=== PATIENT | female | born 1970 | race Asian ===

== ENCOUNTER 2024-01-24 03:44 | Inpatient (IN) | payer MEDICARE, SELFPAY ==
[2024-01-23 21:39] VITALS: BP 106/72
[2024-01-23 21:55] LABS: % Basophils 0.1 % (0-2); % Immature Granulocytes 0.4 % (0-0.5); % Lymphocytes 7.9 % (20.5-51.1); % Monocytes 5.3 % (1.7-9.3); % Neutrophils 86.3 % (42.2-75.2); Absolute Lymphocytes 0.9 10^3/uL (1.2-3.4); Absolute Monocytes 0.6 10^3/uL (0.1-0.6); Absolute Neutrophils 9.6 10^3/uL (1.4-6.5); Hematocrit 33.2 % (37.0-47.0); Hemoglobin 11.6 g/dL (12.0-16.0); Mean Corp Hgb Conc. 34.9 g/dL (33.0-37.0); Mean Corpuscular Hgb 31.4 pg (27.0-31.0); Mean Platelet Volume 8.9 fL (7.4-10.4); Nucleated Red Blood Cells % 0 %; Platelet Count 282 10^3/uL (130-400); Red Blood Cell Count 3.69 10^6/uL (4.20-5.40); Red Cell Dist. Width 11.8 % (11.5-14.5); White Blood Cell Count 11.1 10^3/uL (4.8-10.8)
[2024-01-23 22:15] LABS: ALT (SGPT) 18 U/L (0-35); AST (SGOT) 24 U/L (14-36); Albumin 4.3 g/dl (3.5-5.0); Alkaline Phosphatase 77 U/L (38-126); Blood Urea Nitrogen 14 mg/dl (7-17); Carbon Dioxide 30 mmol/L (22-30); Chloride 99 mmol/L (98-107); Glucose 119 mg/dl (70-99); Lipase 174 U/L (23-300); Potassium 3.9 mmol/L (3.5-5.1); Sodium 133 mmol/L (135-145); Total Bilirubin 0.9 mg/dl (0.2-1.3); Total Protein 7.1 g/dl (6.3-8.2); eGFR > 60.00
--- NOTE | 2024-01-23 23:00 | ED.GENMED ---
History of Present Illness
General
Chief Complaint: Abdominal Pain
Source: patient and family (Daughter Interpreted some)
Exam Limitations: none
Time Seen by Provider: 01/23/24 22:41
Travel History
Have you had any contact with someone who has COVID-19?: No
Do you have any symptoms of coronavirus? Fever > 100 degrees, chills, cough, shortness of breath, sore throat, loss of taste or smell, muscle aches, or headache?: No
History of Present Illness
History of Present Illness:
This is a 53 year old female that comes in with c/o right lower abd pain. States that she started 2 weeks ago with nausea and vomiting. States that at first the pain was all over the abd and then in the past week has moved to the right lower abd.
States that she has tried TUMS and Nexium without any relief. States that she feels she had a fever with chills, occasionally felt SOB, and a headache. Denies any chest pain, vomiting, diarrhea, dizzines, urinary burning.
Past History
Past History
ED Past Medical History: Other (Duodenal ulcer, Glaucoma)
ED Past Surgical History: Other (Bilateral eye surgery)
Social History
Tobacco: Non-smoker
Alcohol: None
Drug: None
Personal:
Living: with family
Review of Systems
Review of Systems
All Other Systems: ROS reviewed and negative except as documented in HPI and ROS
Constitutional: Reports fever and chills
Respiratory: Reports trouble breathing (occasional); Denies cough
Cardiac: Reports no symptoms; Denies chest pain
ABD/GI: Reports abdominal pain and nausea; Denies vomiting or diarrhea
: Reports no symptoms; Denies dysuria, frequency or urgency
Musculoskeletal: Reports no symptoms
Skin: Reports no symptoms
Neurological: Reports headache; Denies dizzy
Psychiatric: Reports no symptoms
Phy Exam
General Physical Exam
General Presentation: no apparent distress
General age: appears stated age
General Skin: warm and dry
General Habitus: normal
General Mental: alert
General Hydration: appears well hydrated
ENT Exam
ENT Exam: TM's normal, pharynx normal and neck supple
Eye Exam
Eye Exam: EOMI
Cardiovascular Exam
Cardiovascular Exam: regular rate/rhythm, no edema, no murmur and normal peripheral pulses
Pulmonary Exam
Pulmonary Exam: lungs clear, no respiratory distress, no rales, chest non tender, no crackles, no rhonchi, no wheezing and no cough
Gastrointestinal Exam
Gastrointestinal Exam: normal bowel sounds, soft, no organomegaly, no pulsatile mass, non distended and tender (Right lower abd tenderness with palpation)
Musculoskeletal Exam
Musculoskeletal Exam: full ROM and no edema
Skin Exam
Skin Exam: normal color, warm/dry, no rash and no petechia
Psychiatric Exam
Psychiatric Exam: normal mood/affect
Course
Orders/Labs/Results
Orders:
Orders
01/23/24 21:47
CMP [Comprehensive Metabolic Panel] Urgent
Complete Blood Count/With Diff Urgent
Lipase Urgent
01/23/24 23:00
0.9% Sodium Chloride 1000 ml [Nss] 1,000 ml IV BOLUS
Iohexol [Omnipaque] See Protocol PO NOW STA
Ketorolac [Toradol] 30 mg IV NOW STA
01/23/24 23:02
Ondansetron Injectable [Zofran] 4 mg .ROUTE .STK-MED ONE
Ondansetron Injectable [Zofran] 4 mg IV NOW STA
01/23/24 23:12
Iohexol [Omnipaque] 50 ml .ROUTE .STK-MED ONE
01/24/24 01:19
Urinalysis Reflex To Culture Urgent
Date Specimen was Collected: 01/24/24
Time Specimen was Collected: 01:15
Urine Microscopic Reflex Cult Urgent
01/24/24 01:30
CT Abd/pel W Iv And Oral Contr Urgent
Reason For Exam: Right lower abd pain
01/24/24 02:00
Lactic Acid Urgent
01/24/24 02:37
Admit/Transfer Patient As Directed
Co-Sign Provider:
Level of Care: Inpatient admission
Assign to:: Medical/Surgical
Physician / Group: Lexi Lares - hospitalists
Diagnosis: centrally necrotic colonic mass
Reason for Hospitalization: centrally necrotic colonic mass - GI eval, colonoscopy
Expected length of stay greater than two midnights?: Yes
ELOS- Estimated Length of Stay in days: 2
I certify the patient meets the requirements for IP care: Yes
01/24/24 02:38
Code Status As Directed
Resuscitation Status: Full Code
Abnormal Lab Results
01/23/24 01/24/24
21:47 01:19
WBC 11.1 H 10^3/uL
(4.8-10.8)
RBC 3.69 L 10^6/uL
(4.20-5.40)
Hgb 11.6 L g/dL
(12.0-16.0)
Hct 33.2 L %
(37.0-47.0)
MCH 31.4 H pg
(27.0-31.0)
Absolute Neuts (auto) 9.6 H 10^3/uL
(1.4-6.5)
Absolute Lymphs (auto) 0.9 L 10^3/uL
(1.2-3.4)
Neutrophils % 86.3 H %
(42.2-75.2)
Lymphocytes % 7.9 L %
(20.5-51.1)
Sodium 133 L mmol/L
(135-145)
Glucose 119 H mg/dl
(70-99)
Ur Occult Blood Reflex 1+ A
(Negative)
Urine RBC 7-10 A /HPF
(0-2)
Urine Bacteria (Reflex) Few A
(Negative)
01/23/24 21:47
01/23/24 21:47
WBC slightly elevated. H/H slightly low. Sodium slightly low. Glucose nonfasting. Lipase normal at 174
Vital Signs
Initial and Last Documented VS:
Initial Vital Signs
Temp Pulse Resp BP Pulse Ox
99.1 F 116 24 106/72 98
01/23/24 21:39 01/23/24 21:39 01/23/24 21:39 01/23/24 21:39 01/23/24 21:39
Last Documented Vital Signs
Temp Pulse Resp BP Pulse Ox
98.4 F 84 20 92/56 98
01/24/24 01:38 01/24/24 01:38 01/24/24 01:38 01/24/24 01:38 01/24/24 01:38
MDM/Problems Addressed
Differential Diagnosis Includes:
Appendicitis, Ovarian cyst
MDM/Problems Addressed:
This is a 53 year old female that comes in with c/o abd pain. States that 2 weeks ago she had nausea and vomiting. Then over the past week she had severe abd pain and this pain moved to the RLQ.
Will get labs, CT scan, IV fluids and medicate for pain.
Back into see patient and daughter. Explained that her CT shows that there is a mass at the cecum and ascending colon. This is a concern for malignancy. Explained that at this time there is no sign of obstruction but this is a concern. With
patient pain Will admit patient for further evaluation. Hospitalist notified.
Chronic conditions affecting care:
NA
Acute Exacerbation and/or Progression of Chronic Illness:
NA
*Radiology
Radiology exam reviewed: radiology read reviewed (CT night hawk- Approximately 4.1 X 3.2 X 5.1cm peripherally enhancing, centrally necrotic mass in the right lower quadrant abutting the thickened cecum and ascending colon, concerning for malignancy.
This may be arising form the colon or from the right adnexa. There is a moderate surrounding fat ) and other (CT cont- fat strandiing and trace free fluid. NO obstruction. NO free air. NO additional findings concerning for metastases. No
lymphadenopathy. )
*Pulse Oximetry
Patient hypoxic: no
*EKG
Interpreted by ED Provider?: NA
Rate: EKG- N/A
*Soda Column Operator Interpretation
Rate: Soda Column Operator- N/A
*Critical Care Note
Total Time (30-74mins, 75-104mins- exclusive of procedures): Not Applicable
ED Attending Note
-
Portions of this chart may have been created with voice recognition software.� Occasional wrong word or��sound alike� substitutions may have occurred due to the inherent limitations of voice recognition software.
Discharge Plan
Departure
Patient Disposition: Admit
Date of Disposition: 01/24/24
Time of Disposition: 02:09
Admit to: Med/Surg
Presentation/result/management discussed w/ accepting MD/DO: Hospitalist
Patient with high blood pressure during this ER visit?: No
Condition: Good
Covid-19: Not Applicable
Discharge Problem:
Abdominal pain
Prescriptions:
No Action
esomeprazole magnesium [Nexium] 40 MG capsule,delayed release(DR/EC)
40 mg PO DAILY
Referrals:
Julia Bob MD [Family Provider] -
Interventions
Interventions:
*Risk Screen - Suicide Last Done: 01/23/24 21:39
*Neglect/Abuse Screening Last Done: 01/23/24 21:39
ED- Fall Risk Assessment Last Done: 01/23/24 23:16
NV-Kjzsle-Ussaqclcjg Assessment Last Done: 01/23/24 23:16
[2024-01-23] MEDS: TORADOL 30 MG IV (23:10)
[2024-01-23] MEDS: OMNIPAQUE 50 ML PO (23:10)
[2024-01-23] MEDS: ZOFRAN 4 MG IV (23:10)
[2024-01-23] MEDS: NSS 1000 IV (23:10)
[2024-01-24 01:31] LABS: Urine Albumin Negative (Neg - Trace); Urine Bilirubin Negative (Negative); Urine Character Clear (Clear); Urine Color Yellow; Urine Glucose Negative (Negative); Urine Ketone Negative (Negative); Urine Leukocyte Negative (Negative); Urine Nitrite Negative (Negative); Urine Occult Blood 1+ (Negative); Urine Specific Gravity 1.005 (<1.030); Urine Urobilinogen Negative (Neg - 1+)
[2024-01-24 01:38] VITALS: BP 92/56
[2024-01-24 02:10] LABS: Urine Bacteria Few (Negative); Urine Squamous Cell 0-2 /LPF (Few)
--- NOTE | 2024-01-24 02:24 | HPS.HSE ---
Family Physician
-
Family Physician: Julia Bob
Chief Complaint
-
abdominal pain
History of Present Illness
53 y/o F, hx of PUD, prior C-scope 2 years ago with small polyps presents to ER c/o abd pain. She reports that her symptoms first began 2 weeks ago with nausea/vomiting. Her pain was initially generalized but now is localized to RLQ. She reports
some chills and headaches. denies UTI symptoms. She tried PPI, Tums and rest, without relief. Due to symptoms, appetite has been limited for past 2 weeks and she has lost 6 pounds.
No prior GI/ surgeries.
initial CT in ER concerning for large R colon mass.
Medical History
Past Medical History
Past Medical History: Reports Other (hx of PUD, prior C-scope 2 years ago with small polyps)
Past Surgical History: Reports Other (Bilateral eye surgery)
Social History
Tobacco: Non-smoker
Alcohol: None
Drug: None
Personal:
Living: With Family
Family History
Family History: Not pertinent
Allergies / Home Medications
Allergies reflects when Allergies were last updated in [employer].
Home Medications with original date entered in [employer]
Allergy/Medication List:
Allergies
Allergy/AdvReac Type Severity Reaction Status Date / Time
No Known Allergies Allergy Verified 01/23/24 21:43
Home Medications
esomeprazole magnesium 40 mg capsule,delayed release (Nexium) 40 mg PO DAILY 10/30/14
Review of Systems
-
A 12 point ROS was completed and negative except as noted: Yes
Physical Exam
Vital Signs
Vital Signs
Temp Pulse Resp BP Pulse Ox
98.4 F 84 20 92/56 98
01/24/24 01:38 01/24/24 01:38 01/24/24 01:38 01/24/24 01:38 01/24/24 01:38
Physical Exam
General: No Apparent Distress
HEENT: NormoCephalic
Respiratory: Clear; No Wheezes or Rales
Cardiac: S1/S2 and Regular Rhythm
GI: Soft and Tender (RLQ to deep palpation)
Neuro: AO x 3
Hematologic/Lymphatic: No Lymphadenopathy
Psych: Calm
Laboratory Results
-
01/23/24 21:47
01/23/24 21:47
Laboratory Results
Total Bilirubin 0.9 mg/dl (0.2-1.3) 01/23/24 21:47
AST 24 U/L (14-36) 01/23/24 21:47
ALT 18 U/L (0-35) 01/23/24 21:47
Alkaline Phosphatase 77 U/L (38-126) 01/23/24 21:47
Lipase 174 U/L (23-300) 01/23/24 21:47
Data Reviewed
-
CT Scan: Discussed with Physician and Discussed with Patient
Lab Data: Discussed with Physician and Discussed with Patient
Impression/Plan
-
Assessment:
Abdominal pain/n/v/weight loss
- CT prelim per ER: Approximately 4.1 X 3.2 X 5.1cm peripherally enhancing, centrally necrotic mass in the right lower quadrant abutting the thickened cecum and ascending colon, concerning for malignancy. This may be arising form the colon or from
the right adnexa.
- formal read pending.
- clears; likely will need colonoscopy. consult GI. May consider CRS consult if surgical candidate.
- pain control, anti-emetics
Leukocytosis, possibly reactive in setting of mass
- UA negative
- monitor for fevers; initiate additional workup if febrile
PUD
- hx of stomach ulcer - continue PPI daily
DVT ppx: Lovenox
Code: Full
[2024-01-24 03:14] LABS: Lactic Acid 0.5 mmol/L (0.7-2.0)
[2024-01-24 06:59] LABS: Blood Urea Nitrogen 11 mg/dl (7-17); Calcium 8.5 mg/dl (8.4-10.2); Carbon Dioxide 26 mmol/L (22-30); Chloride 103 mmol/L (98-107); Glucose 88 mg/dl (70-99); Potassium 4.2 mmol/L (3.5-5.1); Sodium 135 mmol/L (135-145); eGFR > 60.00
--- NOTE | 2024-01-24 06:59 | CON.GI ---
Addendum entered and electronically signed by Jasmin Wilkes MD 01/24/24 12:35:
I saw and examined the patient.
The DIRECTOR OF MARKETING COMMUNICATIONS's note was reviewed and I agree with the note.
Comment: This is a very pleasant 53-year-old Turkmen female who presented to the emergency room with symptoms of right lower quadrant abdominal pain with nausea and intermittent vomiting with 6 pound weight loss over the past 2 weeks. [address]
CT shows a mass in the right lower quadrant possible ovarian versus colon mass. Also liver lesion noted thought to be a vascular anomaly less likely metastatic lesion. She did have a colonoscopy about [address] Álvarez small polyp
removed. She says that she had a recent endoscopy in [facility] about a year ago and she says that she was told that her stomach is narrow and prior to that she did have an endoscopy in [address] Bob as below which showed duodenitis, gastric
antral ulcer, questionable pre pyloric healed ulcer vs gastric fistula versus congenital abnormality.
Assessment and plan large 5 cm centrally necrotic mass in the right lower quadrant unclear if it is ovarian versus colonic origin. CEA is normal, CA 125 (P). Discussed with Dr. Amarjit Gruber earlier will get an MRI pelvis and given also possible
liver lesion noted on CT questionable vascular anomaly would also get MRI abdomen to rule out metastatic lesion. Based on the finding if it is noted to be colonic will schedule her for colonoscopy tomorrow and if it is noted to be of pelvic/[facility]
origin she will follow-up with [facility] oncology. need to r/o neoplasm vs less likely infectious etiology ? TB
2. She does have a history of reflux and PUD and has been on Nexium daily, she denies prior history of H. pylori.
3. History of colon polyps as described above she is up-to-date with her colonoscopy last [address] Álvarez.
Original Note:
Consultation
-
Date/Time Consultation Requested: 01/24/24 704
Date/Time Consultation Performed: 01/24/2413
Requesting Provider: Lexi Lares MD
Performing Provider: Nicky Kriney, EVENING OR NIGHT NURSE SUPERVISORJasmin REDD MD
Reason for Consultation: abdominal pain
Medical History
Chief Complaint / HPI
Chief Complaint: abdominal pain
History of Present Illness:
Pt is a 53yo with hx PUD 2013 with EGD at that time with Dr. Álvarez at [facility] then repeat with Dr. Bob after noted nausea and vomiting. Second EGD with Duodenal erythema, superficial gastric ulcer, - prior ulcer vs fistula vs congenital abnormality.
She also report colonoscopy [address] Oscar with small polyp then repeat last year in [place] noted normal. She also report stable [facility] exam in [place] last year. She now returns with onset of abdominal pain with nausea and vomiting.
symptoms began in December with 7 lbs wt loss and difficulty eating with increased pain. CT on admission with concern for 5 cm necrotic mass right lower quadrant with concern for ovarian neoplasm vs colonic process note excluded. Also noted with 2
cm hyperenhancing lesion left hepatic lobe possible vascular anomaly. consider MRI.
Pt admits to GERD and some vomiting with symptoms. She denies dysphagia, diarrhea, constipation vaginal bleeding or rectal bleeding.
2013- EGD Guille Bob- Duodenal erythema, superficial gastric ulcer, - prior ulcer vs fistula vs congenital abnormality
Past Medical History
Past Medical History: Other (PUD, colon polyps, glaucoma)
Past Surgical History: Other (eye surgery)
Social History
Tobacco: Non-Smoker
Alcohol: None
Drug: None
Living: With Family
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
Family History
Family History: Other (no family hx colon cA or polyps)
Allergies / Home Medications
Allergy/AdvReac Type Severity Reaction Status Date / Time
No Known Allergies Allergy Verified 01/23/24 21:43
Medication Instructions Recorded
esomeprazole magnesium 40 mg 40 mg PO DAILY 10/30/14
capsule,delayed release (Nexium)
Review of Systems
-
History Source: Patient
Constitutional: Reports Weight Loss ( 7 lbs )
EENT: Reports No Symptoms
Respiratory: Reports No Symptoms
Cardiac: Reports No Symptoms
Abdomen/GI: Reports Abdominal Pain, Nausea and Vomiting
: Reports No Symptoms
Musculoskeletal: Reports No Symptoms
Skin: Reports No Symptoms
Neurological: Reports Weakness
Endocrine: Reports No Symptoms
Hematologic/Lymphatic: Reports No Symptoms
Vital Signs
Temp Pulse Resp BP Pulse Ox
98.4 F 84 20 92/56 98
01/24/24 01:38 01/24/24 01:38 01/24/24 01:38 01/24/24 01:38 01/24/24 01:38
Physical Exam
Exam
General: Well Developed, Well Nourished and No Apparent Distress
HEENT: Normocephalic and Anicteric
Respiratory: Clear
Cardiac: Regular Rhythm
GI: Soft, Non Distended and Tender (mild lower worse RLQ)
Musculoskeletal: No Clubbing and No Cyanosis
Skin: Warm and Dry
Neuro: Awake, Alert and AO x 3
Psych: Calm
Results
WBC 11.1 10^3/uL (4.8-10.8) H 01/23/24 21:47
Hgb 11.6 g/dL (12.0-16.0) L 01/23/24 21:47
Hct 33.2 % (37.0-47.0) L 01/23/24 21:47
MCV 90.0 fL (81.0-99.0) 01/23/24 21:47
Plt Count 282 10^3/uL (130-400) 01/23/24 21:47
Absolute Neuts (auto) 9.6 10^3/uL (1.4-6.5) H 01/23/24 21:47
Sodium 133 mmol/L (135-145) L 01/23/24 21:47
Potassium 3.9 mmol/L (3.5-5.1) 01/23/24 21:47
Chloride 99 mmol/L (98-107) 01/23/24:
Carbon Dioxide 30 mmol/L (22-30) 01/23/24:
BUN 14 mg/dl (7-17) 01/23/24:
Creatinine 0.8 mg/dL (0.6-1.0) 01/23/24:
Calcium 9.0 mg/dl (8.4-10.2) 01/23/24:
Total Bilirubin 0.9 mg/dl (0.2-1.3) 01/23/24:
AST 24 U/L (14-36) 01/23/24:
ALT 18 U/L (0-35) 01/23/24:
Alkaline Phosphatase 77 U/L (38-126) 01/23/24:
Lipase 174 U/L (23-300) 01/23/24:
Diagnostic Image Results:
01/24/24 CT Abd/pel W Iv And Oral Contr
There is an approximately 5 cm peripherally enhancing lobulated centrally necrotic mass in the right lower quadrant. This likely is from adnexal origin and suggest ovarian neoplasm however a colonic neoplasm cannot be excluded. Consider follow-up CT
as the oral contrast did not reach the right lower quadrant small bowel loops or colon, a follow-up CT could provide information for location of the mass.
There is no small bowel obstruction. No discrete mass or adenopathy otherwise.
There is a 2 cm hyperenhancing lesion in the left hepatic lobe which is not specific. This suggests a vascular anomaly, rather than a metastatic lesion. This becomes isodense with the liver on delayed imaging. Follow-up with contrast-enhanced MRI of
the liver could be performed to further evaluate if clinically indicated.
Prior GI Procedures:
EGD: 2013- EGD Guille Bob- Duodenal erythema, superficial gastric ulcer, - prior ulcer vs fistula vs congenital abnormality
Colonoscopy: [address] Álvarez small polyp then 1 year ago in [place] normal
Assessment / Plan
-
Pt is a 53yo with hx PUD 2013 with EGD at that time with Dr. Álvarez at [facility] then repeat with Dr. Bob after noted nausea and vomiting. Second EGD with Duodenal erythema, superficial gastric ulcer, - prior ulcer vs fistula vs congenital abnormality.
She also report colonoscopy [address] Oscar with small polyp then repeat last year in [place] noted normal. She also report stable [facility] exam in [place] last year. She now returns with onset of abdominal pain with nausea and vomiting.
symptoms began in December with 7 lbs wt loss and difficulty eating with increased pain. CT on admission with concern for 5 cm necrotic mass right lower quadrant with concern for ovarian neoplasm vs colonic process note excluded. Also noted with 2
cm hyperenhancing lesion left hepatic lobe possible vascular anomaly. consider MRI.
-abdominal pain with nausea/vomiting and wt loss
-CT with concern for 5 cm necrotic mass ovarian vs colonic process
-2 cm hyperenhancing hepatic lesion
-hx colon polyp
-hx gastric/duodenal ulcer 2013 with ? fistula vs congenital abnormality
-glaucoma
PLAN:
etiology of abdominal pain related to noted mass on CT vs other
plan for MRI pelvis to further characterize mass
t/c MRI abdomen to eval liver lesion
CEA and Ca 125 pending
clear diet
will follow
-
-
Thank you for consultation and allowing me to participate in the patient's care. Please call the commercial front load operator GI physician during the after hours with any questions or concerns.
[2024-01-24 07:02] LABS: Hematocrit 31.9 % (37.0-47.0); Mean Corp Hgb Conc. 34.5 g/dL (33.0-37.0); Mean Corpuscular Hgb 31.8 pg (27.0-31.0); Mean Corpuscular Volume 92.2 fL (81.0-99.0); Mean Platelet Volume 9.6 fL (7.4-10.4); Platelet Count 239 10^3/uL (130-400); Red Blood Cell Count 3.46 10^6/uL (4.20-5.40); Red Cell Dist. Width 11.8 % (11.5-14.5); White Blood Cell Count 10.4 10^3/uL (4.8-10.8)
[2024-01-24 08:27] VITALS: BP 102/73
--- NOTE | 2024-01-24 08:30 | W.PN.UPDATE ---
Addendum entered and electronically signed by Amarjit Gruber MD 01/24/24 17:28:
MRI abd/pelvis report
Complex right adnexal mass, as described. Multiple possible differentials. This could represent tubo-ovarian abscess, complications of ectopic , cystic/necrotic ovarian or gastrointestinal neoplasm, neoplastic or degenerated pedunculated
uterine or broad ligament fibroid, or periappendiceal abscess.
Findings discussed with patient and family. patient will require evaluation by onc-contact center team lead.
I have contacted Dr Russo and will be seeing patient in office. Contact number provided for patient to call and make a f/u appointment
Patient does not have insurance coverage and requesting assistance, will have to have case management contact family.
Patient will be discharged . Family in agreement with plan .
script for oxycodone/zofran sent to pharmacy
Original Note:
Update Note
Progress Note Update
Non billable note
Patient resting comfortably in bed
Having some RLQ pain , no nausea/vomiting. afebrile in night.
CT a/p images reviewed and interpreted personally. Mass in right pelvis and unable to be differentiated completely. suspected malignancy from adenxa vs colon (of note patient had c-scope in [place] 1 yr back and had polyp? )
CEA and CA 125 level sent
Case discussed with GI - ordering pelvic MRI to better delineate pelvic mass.
--- NOTE | 2024-01-24 11:03 | PTCARENOTE ---
pt aaox3. states 5/10 pain but does not want pain med. states it is her left and right lower abd. tender to touch. afghan pt second language daughter in room to assist. room air breath sounds clear.
[2024-01-24 11:41] LABS: CEA 1.33 ng/ml
[2024-01-24 11:59] VITALS: BMI 17.4
--- NOTE | 2024-01-24 13:33 | CM ---
Addendum entered by Tricia North RN 01/26/24 13:05:
CM updated patient that her insurance is active.
Original Note:
MEt dgtr Ching in room as patient out for MRI. Ching is home from [facility] on [facility].
Patient has medicare due to her glaucoma and visual deficits.
Prior to admit patient independent at home.
Dgtr reports she is helping her parents get their medicaid reinstated.
PCP is Dr. Julia Bob. IF home care is needed dgtr would like Danish speaking home care staff from [facility] which is affliliated with her PCP in [place].
Pharmacy: [facility],
Plan: home but may need home care.
[2024-01-24] MEDS: TYLENOL 650 MG PO (14:00)
--- NOTE | 2024-01-25 07:37 | W.DCSUMMARY ---
Discharge Summary
Discharge Data
Date of Admission: 01/24/24
Date of Discharge: 01/24/24
-
Pending Results: No
Hospital Course
Discharging Physician : Dr Amarjit Gruber
Disposition : To home
Primary care physician : Dr Julia Bob
Principal Discharge diagnosis :
Right pelvic mass presumed to be adnexal in nature
Chronic Discharge diagnosis :
Gastroesophageal reflux disease
History of colonic polyp
History of peptic ulcer disease
Hospital Course :
Patient is a 53-year-old female with above-mentioned past medical history came to ER with new onset of right lower quadrant abdominal pain. Symptoms began approximately 2 weeks back with some associated nausea and vomiting. No major change in
bowel habits. Patient has been losing weight with some nighttime diaphoresis as well. In ER patient had a CT abdomen pelvis which showed right pelvic mass. Patient denies of having any previous history of malignancy, no family history of
malignancy. Patient had screening colonoscopy in the past and had benign polyp removed. GI was involved in care for further help as there was question of this mass originating from colon. On further reviewing images it was unclear if the mass was
originating from adnexal masses a possible differential source. An MRI pelvis was done which showed mass likely to be coming from adnexa or could have been a complex tubo-ovarian abscess. Patient clinically does not have any ongoing complicating
factors. Discussed with patient and family that patient will require follow-up with oncological mechanic and welder and contact number of Dr. Russo provided. Patient was discharged with symptomatic care at this point.
Important imaging findings :
MRI pelvis
There is a complex cystic mass in the right adnexa. Is approximately 7 x 5 x 7 cm. there is a relatively thick enhancing peripheral margin. Centrally, there is a complex nonenhancing lobular versus septated cystic component measuring approximately
4.6 x 3.5 cm.
Multiple possible differentials. This could represent tubo-ovarian abscess, complications of ectopic , cystic/necrotic neoplasm, neoplastic or degenerative pedunculated uterine or broad ligament fibroid, or periappendiceal abscess.
There is a moderate amount of free fluid. The uterus and left adnexa are otherwise unremarkable. The liver is normal in size. There is a lateral segment left lobe mass measuring 1.8 x 1 cm, with imaging features consistent with an hemangioma. No
other intrahepatic space-occupying lesion.
The spleen is normal in size. Unremarkable gallbladder. No bile duct dilatation. Unremarkable pancreas. No adrenal mass. No obstructive uropathy. No para-aortic mass or adenopathy. Trace upper abdominal ascites.
Procedure findings :
None
Discharge Plan
-
Patient Disposition: Home (Routine Discharge)
Discharge Diagnosis/Procedures: Right adenexal mass
Condition: Fair
Diet: Low Residue
Activity: As tolerated
Driving Restrictions: No driving
Bathing Restrictions: OK to Shower
Activity Restrictions/Additional Instructions:
Please call Dr Russo's office @ [facility] in [place] - [phone]
Referrals:
Ben Russo Jr., MD [Active] - in less than 1 week
Julia Bob MD [Family Provider] - in one week
Prescriptions:
New
oxycodone 5 mg tablet
5 mg PO Q8H PRN (Reason: Mod sev pain) Qty: 15 0RF
ondansetron HCl 4 mg tablet
4 mg PO Q8H PRN (Reason: nausea and vomiting) 4 Days Qty: 30 0RF
polyethylene glycol 3350 [Miralax] 17 gram powder in packet
17 g PO DAILY Qty: 30 0RF
Continued
esomeprazole magnesium [Nexium] 40 MG capsule,delayed release(DR/EC)
40 mg PO DAILY
brimonidine [Alphagan P] 0.1 % Drops
1 drp BOTH EYES TID
Discharge Orders:
Discharge Patient (As Directed); Ordered 01/24/24
Ordered By: Amarjit Gruber
Discharge Date and Time
Discharge Date/Time: 01/24/24 17:37
[2024-01-25 18:53] LABS: CA 125 17.5 U/mL (0-35)
== END 2024-01-24 17:37 | disposition home or self-care (01) | DRG 392 ==
LOC: ED 03:44
PROVIDERS: Clinical Nurse Specialist Family Health; Emergency Medicine; ADMITTING PHYSICIAN Internal Medicine; ATTENDING PHYSICIAN Hospitalist; CONSULT PHYSICIAN Internal Medicine Gastroenterology; EMERGENCY PHYSICIAN Student in an Organized Health Care Education/Training Program; FAMILY PHYSICIAN Internal Medicine Geriatric Medicine
DX: R19.03 Right lower quadrant abdominal swelling, mass and lump (principal); Z87.11 Personal history of peptic ulcer disease; K21.9 Gastro-esophageal reflux disease without esophagitis
CPT/HCPCS: 72197; 74177; 74183; 80048; 80053; 81003; 81015; 82378; 83605; 83690; 85025; 85027; 86304; 96361; 96374; 96375; 99285; A9575; Q9967

== ENCOUNTER 2024-07-21 13:05 | Inpatient (IN) | payer MEDICARE, OTHER, SELFPAY ==
[2024-07-21] VITALS (8 sets, daily range): BP systolic 93–128; BP diastolic 49–77; BMI 18.8; BMI 17.5
[2024-07-21 11:13] LABS: Glucose - Point of Care 149 mg/dl (70-99)
--- NOTE | 2024-07-21 11:18 | ED.GENMED ---
History of Present Illness
General
Chief Complaint: Change Level of Consciousness
Time Seen by Provider: 07/21/24 11:09
History of Present Illness
History of Present Illness:
HPI: At approximately 10:30 AM while at worship, the patient had abrupt onset of vomiting and dizziness. She was brought here and while in triage she had minimal responsiveness and was emergently brought back to room 41. She currently is a very
limited historian. She does report ongoing nausea and dizziness. She appears to be globally weak but when I asked her about any focal weakness she reports that she is more weak on the right side.
EXAM:
GENERAL: The patient is currently ill-appearing, she is moaning
HEENT: Significant spontaneous nystagmus noted
CARDIOVASCULAR: No murmurs, normal heart rate, regular rhythm, No chest wall tenderness
PULMONARY: No respiratory distress, breath sounds are clear and equal
ABDOMEN: Soft with no peritoneal signs, no tenderness, surgical scars noted to the anterior abdominal wall
NEUROLOGIC: The patient appears to be globally weak, she seems to have some trouble communicating and primarily keeps her eyes closed, she would not participate with trying to do [id number] testing
PSYCHIATRIC: The patient does not participate much with physical examination
EXTREMITIES: Decreased active range of motion
SKIN: No rash, no lesions
TIME OF INITIAL ENCOUNTER: 11:10 AM
NUMBER AND COMPLEXITY OF PROBLEMS ADDRESSED AT THE ENCOUNTER
� Chronic conditions affecting care: Perforated appendicitis
� Acute Exacerbation and/or Progression of Chronic Illness: This is an acute problem
� Differential Diagnosis includes: Positional vertigo, labyrinthitis, CVA
AMOUNT AND/OR COMPLEXITY OF DATA TO BE REVIEWED AND ANALYZED
� I performed an independent evaluation of and my interpretation is:
EKG: Sinus 54, no acute ST abnormality
CT: CT head shows no acute abnormality
X-rays:
Laboratory Studies: Blood sugar 149, other than slight low potassium, chemistries unremarkable, CBC unremarkable
Other:
� Review of other/old records: The patient was admitted here in January that showed a complex cystic mass in the right adnexa
� Clinical information was obtained by an independent historian: I spoke to at bedside
� Prescriptions/Medications Considered but not given:
� Further testing considered but not performed:
RISK OF COMPLICATIONS AND/OR MORBIDITY OR MORTALITY OF PATIENT MANAGEMENT
� Social determinants of health affecting care: Lives at home, primarily speaks Azeri
� Discussion with other providers: I discussed case with Dr. Modi and I agree with Dr. Modi that this is most likely a labyrinthitis. Hospitalist for
� Escalation of care including admission/observation vs risk of discharge considered: Blood sugar 149 upon arrival, borderline hypotensive. She is a rather difficult examination as she did not appear to participate much with
examination upon arrival. She did report unilateral weakness more so on the right side and stroke alert were called given the debility symptoms. Unfortunately, the patient symptoms persisted and had significant retching/dry heaving. She cannot
safely be discharged. In addition to Zofran and Ativan I am trying Reglan with Benadryl. Initial EKG was sinus however further cardiac monitoring and repeat EKG showed atrial fibrillation. Dr. Modi had recommended obtaining an MRI however at
this point the patient continues to retch/vomit and she sent to MRI at this point.
Past History
Past History
ED Past Medical History: Other (Duodenal ulcer, Glaucoma)
ED Past Surgical History: Other (Bilateral eye surgery)
Social History
Tobacco: Non-smoker
Alcohol: None
Drug: None
Personal:
Living: with family
Phy Exam
Physical Exam
Physical Exam:
See HPI
Course
Orders/Labs/Results
Orders:
Orders
07/21/24 11:14
EKG [Electrocardiogram (*1)] Urgent
Reason for Study: Chest Pain
EKG- Treatment ONCE
07/21/24 11:15
Complete Blood Count/With Diff Urgent
Comprehensive Metabolic Panel Urgent
Lipase Urgent
Troponin I Urgent
07/21/24 11:17
CT Head W/o Cont STROKE ALERT Urgent
Comment:
Reason For Exam: severe dizzy; trouble comm; severe weak
07/21/24 11:18
0.9% Sodium Chloride 1000 ml [Nss] 1,000 ml IV BOLUS
Ondansetron Injectable [Zofran] 4 mg IV NOW STA
07/21/24 11:31
0.9% Sodium Chloride [Nss (Preservative Free)] 0.5 ml IV NOW STA
Lorazepam [Ativan] 1 mg IV NOW STA
07/21/24 11:34
Lorazepam [Ativan] 2 mg .ROUTE .STK-MED ONE
07/21/24 12:06
Diphenhydramine [Benadryl] 25 mg IV NOW STA
Metoclopramide [Reglan] 10 mg IV NOW STA
07/21/24 12:18
MR Brain Without Contrast Routine
Comment:
Reason For Exam: ? cerebellar stroke
Recent pill cam endoscopy?: No
07/21/24 12:19
Lorazepam [Ativan] 0.5 mg IV ONCE ONE
07/21/24 12:27
CT Head & Neck Angio W/wo IV Routine
Comment:
Reason For Exam: clot causing posterior circ issues
Abnormal Lab Results
07/21/24 07/21/24
11:11 11:15
RBC 3.88 L 10^6/uL
(4.20-5.40)
Hct 35.2 L %
(37.0-47.0)
MCH 31.4 H pg
(27.0-31.0)
Potassium 3.3 L mmol/L
(3.5-5.1)
Glucose 169 H mg/dl
(70-99)
POC Glucose 149 H mg/dl
(70-99)
07/21/24 11:15
07/21/24 11:15
Vital Signs
Initial and Last Documented VS:
Initial Vital Signs
Pulse Resp BP Pulse Ox
62 25 104/69 100
07/21/24 11:08 07/21/24 11:08 07/21/24 11:08 07/21/24 11:08
Last Documented Vital Signs
Pulse Resp BP Pulse Ox
62 25 104/69 100
07/21/24 11:08 07/21/24 11:08 07/21/24 11:08 07/21/24 11:08
*Critical Care Note
Total Time (30-74mins, 75-104mins- exclusive of procedures): Not Applicable
ED Attending Note
-
Portions of this chart may have been created with voice recognition software.� Occasional wrong word or��sound alike� substitutions may have occurred due to the inherent limitations of voice recognition software.
Discharge Plan
Departure
Patient Disposition: Admit
Date of Disposition: 07/21/24
Time of Disposition: 12:12
Presentation/result/management discussed w/ accepting MD/DO: Hospitalist
Discharge Problem:
Vertigo
Prescriptions:
No Action
brimonidine [Alphagan P] 0.1 % Drops
1 drp BOTH EYES BID
Referrals:
UNKNOWN,NO INTERVIEW [Family Provider] -
Interventions
Interventions:
ED- Neurological Assessment Last Done: 07/21/24 11:14
Discharge Date and Time
Print Language: URDU
--- NOTE | 2024-07-21 11:23 | CON.NEURO ---
Neuro Assessment/Plan
Assessment
Abrupt onset of dizziness and nausea with accompanied generalized weakness
Diagnosis currently is acute vestibular neuritis. Diagnosis would potentially be labyrinthitis if the patient had a known viral prodrome. This diagnosis is dependent on an absence of atrial fibrillation which was suggested since presentation by
bedside ECG. If there is evidence of atrial fibrillation, diagnosis must include the possibility of acute ischemic stroke
Plan
Would not at this time provide Tenecteplase due to lack of clarity regarding diagnosis and NIHSS < 6
Check MRI of brain
Check CTA head and neck due to possibility of embolic issue based on possible AFib
Physical therapy evaluation for vestibular therapy
Appreciate Cardiology evaluation for AFib
would not at this time start antiplatelet therapy
Would initiate anticoagulation immediately if atrial fibrillation is discovered despite the possibility of stroke because size of possible stroke would be minimal
Consider lipid profile based on MRI of brain results
Provide therapy to remediate symptomatic dizziness including lorazepam due to short supply diazepam IV
Will follow
Consultation
Order
Date of Consultation: 07/21/24
Requesting Provider: Department physician
Reason for Consult: Dizziness
Subjective/Objective
Subjective Data
Date of Service: July 21, 2024
Patient presented to this [facility] emergency department with sudden onset of sense of dizziness and generalized weakness. There was a suggestion initially that the patient had right hemibody weakness at the onset of symptoms which began while she
was in confucianism and at prayer. Patient was described as having fulminant sense of dizziness and nausea with subsequent emesis. No prior episodes. Since presentation to this hospital's emergency department, the patient has remained vertiginous. The
patient's information is obtained after translation by healthcare providers. There are no known associated symptoms with the exception of right ear fullness. The patient is not aware of any hearing loss that has been acute. No recent illnesses.
Objective Data
Vital Signs
Pulse Resp BP Pulse Ox
62 25 104/69 100
07/21/24 11:08 07/21/24 11:08 07/21/24 11:08 07/21/24 11:08
Patient Allergies
No Known Allergies Allergy (Verified 01/23/24 21:43)
CVA Assessment
Onset of Stroke Symptoms
Onset of symptoms known: Yes
Date of onset of symptoms: 07/21/24
Time of onset of symptoms: 10:30
Time pt last seen normal is known: Yes
Date last time pt seen normal: 07/21/24
Time last time pt seen normal: 10:30
NIH Stroke Score
Level of Consciousness: 0 - Alert
LOC Questions: 0-Answers both correctly
LOC Commands: 0-Performs both correctly
Best Horizontal Gaze: 0-Normal
Visual Croft: 0=Normal, no visual loss
Facial Palsy: 0=Normal, symmetrical
Motor - Right Arm: 0=No drift 10 seconds
Motor - Left Arm: 0=No drift 10 seconds
Motor - Right Le-No drift 5 seconds
Motor - Left Le-No drift 5 seconds
Limb Ataxia: 0-Absent
Sensation: 0-Normal
Best Language: 0-No aphasia
Dysarthria: 0-Normal
Extinction and Inattention: 0-No abnormality
Total Score:: 0
Tenecteplase Contraindications
Inclusion and Exclusion criteria reviewed: Yes
Review of Systems
-
Unable to obtain full review of systems at this time due to: Language Barrier and Other (Patient discomfort)
History Source: Patient
All other systems: Reviewed and negative
EENT: Negative Decreased Vision or Swallowing Difficulty
Neuro: Dizzy; Negative Headache
Physical Exam
-
General: Appears in Distress (Due to generalized discomfort and initially overwhelmed with nausea as well as episode of emesis) and Appears Stated Age
Eyes: Round OU, [place] Conjunctivae and No Ptosis; Negative Able to visualize OU
HEENT: Anicteric and Moist Mucous Membranes
Neck: Full Range of Motion
Respiratory: No Dyspnea
Cardiac: No JVD
GI: Non-distended
Skin: Unremarkable
Extremities: No Clubbing, No Cyanosis and No Edema
Psych: Negative Intact Judgement/Insight
Extended Neurological Exam
Mood & Affect: Anxious
Attention Span & Concentration: Awake, Interactive, Closes Eyes after Stimulation (Immediately) and Severe Difficulty with 2 Step Request
Memory: Unremarkable
Tremor: Hand Tremor Absent and Head Tremor Absent
Speech: Quality Unremarkable (Accented. Half an [place]er, half an Chinese) and Severely Reduced Output
Cranial Nerve II: Left Eye: Pupillary Reactivity Unremarkable, Pupillary Size Unremarkable and Visual Croft Reduced
Cranial Nerve II: Right Eye: Pupillary Reactivity Unremarkable, Pupillary Size Unremarkable and Visual Croft Grossly Intact
Cranial Nerves III, IV, : Extraocular Movement: Other (Beating nystagmus conjugately with rotatory component to the right and downward)
Cranial Nerve VII: Facial Symmetry: Normal Facial Symmetry
Cranial Nerve VIII: Hearing: Unremarkable Hearing to Normal Conversational Volume
Cranial Nerves IX, X: Palate Movement: Palate Elevation Symmetric
Cranial Nerve XI: Shoulder Shrug: Unremarkable
Cranial Nerve XII: Tongue Protusion: Midline
Muscle Strength, Overall: Full Throughout and Other (Variable effort)
Muscle Bulk & Tone: Bulk Unremarkable and Tone Unremarkable
Pronator Drift: No Drift in Upper Extremities and No Drift in Lower Extremities
Deep Tendon Reflexes: Trace Throughout
Cold Sensation: Unable to Assess
Vibration Sensation: Unable to Assess
Touch Sensation: Unremarkable
Coordination: Mcnspe-bmnt-aldsyd Testing Unremarkable
Babinski Sign: Absent Bilaterally
Gait & Station: Unable to Assess
Data Reviewed
-
CT Head: Report Reviewed and Image Reviewed
Labs: Report Reviewed
Reviewed with: Physician, Patient and Family
Old Records: Summarized
Medications
-
Home Medications
�Medication �Instructions �Recorded
esomeprazole magnesium 40 mg 40 mg PO DAILY Gastrointestinal 10/30/14
capsule,delayed release (Nexium) Issue
brimonidine 0.1 % eye drops 1 drp BOTH EYES TID Eye Condition 01/24/24
(Alphagan P)
ondansetron HCl 4 mg tablet 4 mg PO Q8H PRN nausea and 01/24/24
vomiting 4 days #30 tabs
oxycodone 5 mg tablet 5 mg PO Q8H PRN Mod sev pain #15 01/24/24
tabs
polyethylene glycol 3350 17 gram 17 g PO DAILY #30 ea 01/24/24
oral powder packet (Miralax)
Past History
Past History
ED Past Medical History: Other (Duodenal ulcer, Glaucoma)
ED Past Surgical History: Other (Bilateral eye surgery)
Social History
Tobacco: Non-smoker
Alcohol: None
Drug: None
Personal:
Living: with family
Family History
Family History: Other (reviewed and non-contributory)
[2024-07-21] MEDS: ATIVAN 1 MG IV (11:34)
[2024-07-21] MEDS: ZOFRAN 4 MG IV (11:35)
[2024-07-21] MEDS: NSS (PRESERVATIVE FREE) 0.5 ML IV (11:35)
[2024-07-21] MEDS: NSS 1000 IV (11:35)
[2024-07-21 11:37] LABS: ALT (SGPT) 23 U/L (0-35); AST (SGOT) 28 U/L (14-36); Albumin 4.5 g/dl (3.5-5.0); Alkaline Phosphatase 98 U/L (38-126); Blood Urea Nitrogen 15 mg/dl (7-17); Calcium 9.5 mg/dl (8.4-10.2); Carbon Dioxide 23 mmol/L (22-30); Chloride 103 mmol/L (98-107); Estimated Creatinine Clearance 68 ml/min; Glucose 169 mg/dl (70-99); Lipase 184 U/L (23-300); Potassium 3.3 mmol/L (3.5-5.1); Sodium 140 mmol/L (135-145); Total Protein 6.9 g/dl (6.3-8.2); eGFR > 60.00
[2024-07-21 11:40] LABS: % Basophils 0.5 % (0-2); % Eosinophils 0.7 % (0-6); % Immature Granulocytes 0.5 % (0-0.5); % Lymphocytes 45.8 % (20.5-51.1); % Monocytes 6.2 % (1.7-9.3); % Neutrophils 46.3 % (42.2-75.2); Absolute Lymphocytes 2.6 10^3/uL (1.2-3.4); Absolute Monocytes 0.4 10^3/uL (0.1-0.6); Absolute Neutrophils 2.6 10^3/uL (1.4-6.5); Hematocrit 35.2 % (37.0-47.0); Hemoglobin 12.2 g/dL (12.0-16.0); Mean Corp Hgb Conc. 34.7 g/dL (33.0-37.0); Mean Corpuscular Hgb 31.4 pg (27.0-31.0); Mean Corpuscular Volume 90.7 fL (81.0-99.0); Mean Platelet Volume 9.5 fL (7.4-10.4); Nucleated Red Blood Cells % 0 %; Platelet Count 241 10^3/uL (130-400); Red Blood Cell Count 3.88 10^6/uL (4.20-5.40); Red Cell Dist. Width 12.5 % (11.5-14.5); White Blood Cell Count 5.7 10^3/uL (4.8-10.8)
[2024-07-21 11:48] LABS: Troponin I < 0.012 ng/ml
--- NOTE | 2024-07-21 12:20 | HPS.HSE ---
Addendum entered and electronically signed by Selvin Tam MD 07/21/24 13:36:
I saw and examined the patient.
The SURGICAL SERVICES MANAGER or PA's note was reviewed and I agree with the note.
Comment: 54-year-old female with past medical history of duodenal ulcer, glaucoma, recent finding of right lower quadrant possible ovarian versus colon mass in 02/10, now presents for acute onset of vomiting/dizziness at the [employer]iscopalian. Other associated
symptoms include weakness and fullness of the right ear.. No prior episodes in the past. No hearing loss. Vitals with evidence of atrial fibrillation with normal heart rate, pulse 76, respiratory rate 19, saturating 100% room air., Afebrile.
Potassium 3.3. CT head unremarkable for acute findings. CT angio of the head and neck negative for acute findings as well. Neurology and cardiology consulted. Plan�possible vestibular neuritis. Treat symptoms with benzodiazepine, Benadryl,
other recommendations as per neurology. Follow-up lipid panel, MRI brain. Does not appear to be acute stroke, therefore holding off on tPA. Starting heparin drip for anticoagulation in setting of atrial fibrillation. Once able to tolerate p.o.,
can transition over to DOAC. IV fluids. Can hold off on antiplatelets for now as per neurology. PT/OT. Zohreh repletion. Of note, has complex right adnexal mass on previous imaging and should have follow-up closely with gynecology/GI.
Original Note:
Family Physician
-
Family Physician: NO INTERVIEW UNKNOWN
Chief Complaint
-
vomiting/dizzy
History of Present Illness
54 year old with PMH for duodenal ulcer, Glaucoma presented to us with acute onset of vomiting and dizzy while she was in the episcopalian. she stated ORR. denied fever, chills, runny nose, congestion, cough. denied chest pain, sob. denied abdominal pain,
diarrhea. denied dysuria or hematuria. she stated very weak.
head CT with no acute findings. admitting for further management.
Medical History
Past Medical History
Past Medical History: Reports Other
Additional Past Medical History:
PUD
Glaucoma
Past Surgical History: Reports Other
Additional Past Surgical History:
b/l eye surgery
appendectomy
Social History
Tobacco: Non-smoker
Alcohol: None
Drug: None
Personal:
Living: With Family
Family History
Family History: Not pertinent
Allergies / Home Medications
Allergies reflects when Allergies were last updated in [facility].
Home Medications with original date entered in [facility]
Allergy/Medication List:
Allergies
Allergy/AdvReac Type Severity Reaction Status Date / Time
No Known Allergies Allergy Verified 01/23/24 21:43
Home Medications
brimonidine 0.1 % eye drops (Alphagan P) 1 drp BOTH EYES BID Eye Condition 01/24/24
Review of Systems
-
Constitutional: Reports No Symptoms
EENT: Reports No Symptoms
Respiratory: Reports No Symptoms
Cardiac: Reports No Symptoms
Abdomen/GI: Reports Vomiting
: Reports No Symptoms
Musculoskeletal: Reports No Symptoms
Skin: Reports No Symptoms
Neurological: Reports Dizzy
Endocrine: Reports No Symptoms
Hematologic/Lymphatic: Reports No Symptoms
Psych: Reports No Symptoms
Physical Exam
Vital Signs
Vital Signs
Pulse Resp BP Pulse Ox
62 25 104/69 100
07/21/24 11:08 07/21/24 11:08 07/21/24 11:08 07/21/24 11:08
Physical Exam
General: Well Developed, Well Nourished and No Apparent Distress
HEENT: NormoCephalic, Moist mucous membranes and Atraumatic
Respiratory: Clear
Cardiac: S1/S2 and Regular Rhythm; No Murmur or Rub
GI: Soft, Non Tender, Non Distended and Normal Bowel Sounds; No Organomegaly
Rectal: Deferred by Provider
Musculoskeletal: No Clubbing, No Cyanosis and No Edema
Skin: No Rash
Neuro: AO x 3 and Nonfocal/grossly intact
Psych: Calm
Laboratory Results
-
07/21/24 11:15
07/21/24 11:15
Laboratory Results
Total Bilirubin 1.0 mg/dl (0.2-1.3) 07/21/24 11:15
AST 28 U/L (14-36) 07/21/24 11:15
ALT 23 U/L (0-35) 07/21/24 11:15
Alkaline Phosphatase 98 U/L (38-126) 07/21/24 11:15
Troponin I < 0.012 ng/ml 07/21/24 11:15
Lipase 184 U/L (23-300) 07/21/24 11:15
Data Reviewed
-
CT Scan: Report Reviewed by me
Lab Data: Labs Reviewed by me
Impression/Plan
-
#n/v/dizzy/expressive aphasia/right sided weakness r/o acute CVA vs acute labyrinthitis
-CT head No CT evidence for acute intracranial hemorrhage or transcortical infarct
-obtain MRI/MRA
-obtain A1c,lipid profile
-statin and asa continued
-maintain NPO until patient fully awake, speech eval and able to tolerate any oral intake.
-fluid continued for hydration
-PT consulted for vestibular therapy
-defer antiplatelet and AC as per neuro
-Zofran prn
-neuro following
#new onset atrial fib with slow RVR
-obtain ECHO
-on arrival EKG with sinus rey
-at present atrial fib
-initiated on heparin drip, as patient not able to tolerate any oral intake.
-cardiology consulted
#hypokalemia likely from N/V
-k 3.3
-iv KCL
#PUD
- hx of stomach ulcer
#Glaucoma
-brimonidine continued
#complex right adnexal mass
-folly ow enamel drier as outpatient.
#DVT ppx: SCD
#Code: Full
[2024-07-21] MEDS: BENADRYL 25 MG IV (12:31)
[2024-07-21] MEDS: ATIVAN 0.5 MG IV (12:32)
[2024-07-21] MEDS: REGLAN 10 MG IV (12:32)
--- NOTE | 2024-07-21 13:17 | CON.CAR ---
Consultation
Consultation Request
Date/Time Consultation Requested: July 21, 2024
Date/Time Consultation Performed: July 21, 2024
Requesting Provider: Hospitalist
Performing Provider: Dr. Omar De
Reason for Consultation: Newly diagnosed atrial fibrillation
Medical History
-
Chief Complaint: Dizziness and nausea
History of Present Illness:
54-year-old woman who suddenly while at [employer] today began feeling dizzy and developed nausea and vomiting.
Neurology has been consulted. Evaluation thus far feels that differential diagnosis includes acute CVA versus acute labyrinthitis.
While in the emergency department she initially presented in sinus rhythm but during her emergency room evaluation she developed atrial fibrillation with a controlled ventricular rate. Asymptomatic.
Through an hourly sign language interpreter she tells me that she has never had any cardiac diagnoses that she is aware of. No history of arrhythmias. No family history of arrhythmias. She describes that she has no chest pain or shortness of breath.
Laboratory studies are listed and reviewed by me. Hemoglobin is 12.2, BUN and creatinine are 15 and 0.7. She is hypokalemic with a potassium of 3.3.
My review of her presenting EKG finds sinus bradycardia at 54 bpm and incomplete right bundle branch block, no previous EKG for comparison.
My review of her second EKG from today finds atrial fibrillation with ventricular rate of 58 bpm. Borderline low voltages.
Head CT finds no CT evidence for acute intracranial hemorrhage or transcortical infarct.
Past medical history includes peptic ulcer disease and glaucoma.
Social History
Tobacco: Non-Smoker
Alcohol: None
Drug: None
Personal:
Living: With Family
Family History
Family History: Reviewed & Not Pertinent
Allergies / Home Medications
Allergy/AdvReac Type Severity Reaction Status Date / Time
No Known Allergies Allergy Verified 01/23/24 21:43
�Medication �Instructions �Recorded �Confirmed �Type
brimonidine 0.1 % eye drops 1 drp BOTH EYES BID Eye Condition 01/24/24 07/21/24 History
(Alphagan P)
Review of Systems
-
History Source: Patient
All other systems: Negative unless noted
Abdomen/GI: Nausea and Vomiting
Neurological: Dizzy
Physical Exam
Vital Signs
Pulse Resp BP Pulse Ox
62 25 104/69 100
07/21/24 11:08 07/21/24 11:08 07/21/24 11:08 07/21/24 11:08
Lab Results
07/21/24 11:15
Troponin I < 0.012 ng/ml 07/21/24 11:15
Physical Exam
General: Well Developed, Well Nourished and Other (Appears fatigued)
HEENT: Normocephalic, Anicteric and Moist Mucous Membranes
Respiratory: Clear and Non Labored Respirations
Cardiac: S1/S2, Irregular Rhythm and Murmur (There is a 106 apical holosystolic murmur no rubs)
Breast: Deferred by me
GI: Soft, Non Tender, Non Distended and Normal Bowel Sounds
Rectal: Deferred by Provider
Musculoskeletal: No Clubbing, No Cyanosis and No Edema
Neuro: Awake, Alert and Oriented
Psych: Calm
Impression / Plan
-
Assessment:
Acute CVA versus acute labyrinthitis
Newly diagnosed atrial fibrillation
Recommendations:
Acutely,
- Not enough information to accurately assess her CHADSVASc score at this point. Once it is okay with neurology (brain MRI is pending) would initiate anticoagulation. Right now with her nausea and vomiting oral medications are unlikely to be of
value and therefore it is reasonable to initiate IV heparin and eventually transition to oral anticoagulation. Long-term, need for ongoing anticoagulation will need to be reassessed.
- She is already rate controlled so I would not add any rate control agents.
- Check echocardiogram
- Mildly hypokalemic and possibly related to the vomiting. Check magnesium. Replete electrolytes as needed, goal potassium is between 4 and 5 and magnesium between 2 and 3
Total time 75 minutes
Data Reviewed
-
EKG: Tracing Personally Visualized and interpreted
Radiology: Report Reviewed by me
Labs: Labs Reviewed by me
[2024-07-21 14:03] LABS: INR 1.02; PT 13.2 Sec (11.4-14.6)
[2024-07-21 16:22] LABS: Hematocrit 34.7 % (37.0-47.0); Hemoglobin 12.3 g/dL (12.0-16.0); Mean Corp Hgb Conc. 35.4 g/dL (33.0-37.0); Mean Corpuscular Hgb 32.5 pg (27.0-31.0); Mean Corpuscular Volume 91.6 fL (81.0-99.0); Mean Platelet Volume 9.4 fL (7.4-10.4); Platelet Count 172 10^3/uL (130-400); Red Blood Cell Count 3.79 10^6/uL (4.20-5.40); Red Cell Dist. Width 12.2 % (11.5-14.5); White Blood Cell Count 9.6 10^3/uL (4.8-10.8)
[2024-07-21] MEDS: KCL 270 MEQ IV (16:28)
[2024-07-21] MEDS: LR 1000 IV (16:28)
[2024-07-21] MEDS: HEPARIN 25000 UNITS/250 ML IV (16:29)
[2024-07-21] MEDS: LIPITOR 40 MG PO (17:19)
[2024-07-21] MEDS: ALPHAGAN P 0.1% EYE DROPS 1 DROP BOTH EYES (21:44)
[2024-07-21 22:39] LABS: APTT 73.5 Sec (23.4-35.0)
[2024-07-22 03:00] VITALS: BP 100/55
[2024-07-22 04:51] LABS: Hematocrit 31.5 % (37.0-47.0); Hemoglobin 11.1 g/dL (12.0-16.0); Mean Corp Hgb Conc. 35.2 g/dL (33.0-37.0); Mean Corpuscular Hgb 32.2 pg (27.0-31.0); Mean Corpuscular Volume 91.3 fL (81.0-99.0); Mean Platelet Volume 9.4 fL (7.4-10.4); Platelet Count 177 10^3/uL (130-400); Red Blood Cell Count 3.45 10^6/uL (4.20-5.40); Red Cell Dist. Width 12.4 % (11.5-14.5)
[2024-07-22 05:04] LABS: APTT 89.1 Sec (23.4-35.0); Blood Urea Nitrogen 12 mg/dl (7-17); Calcium 9.3 mg/dl (8.4-10.2); Carbon Dioxide 27 mmol/L (22-30); Chloride 105 mmol/L (98-107); Estimated Creatinine Clearance 58 ml/min; Glucose 81 mg/dl (70-99); HDL Cholesterol 79 mg/dl; LDL Cholesterol, Calculated 115 mg/dl; Potassium 4.1 mmol/L (3.5-5.1); Sodium 141 mmol/L (135-145); Total Cholesterol 203 mg/dl (50-199); Triglyceride 47 mg/dl (10-149); Very Low Density Lipoprotein 9 mg/dl (0-30); eGFR > 60.00
[2024-07-22 07:00] VITALS: BP 109/68
[2024-07-22] MEDS: ALPHAGAN P 0.1% EYE DROPS 1 DROP BOTH EYES (07:44)
[2024-07-22 08:57] VITALS: BP 102/65; BP 104/70
[2024-07-22 08:59] VITALS: BP 102/65; BP 104/70; PULSE 60
--- NOTE | 2024-07-22 10:02 | PTOTSP ---
ST Dysphagia Evaluation
Oropharyngeal function appears intact at the bedside. Speech/cog/lang function at baseline per pt; MRI brain (-)
Pt received awake/alert sitting upright in bed with family present at the bedside. Self fed trials of regular solids and thin liquids. Demo functional mastication and bolus was orally cleared. Thin liquids by straw sip swallow appears prompt. No
overt s/sx of aspiration observed.
Recommendations
1. Regular solids/thin liquids
2. Meds oral per pt preference
3. No further COMPREHENSIVE ADVISOR needs
[2024-07-22 11:00] VITALS: BP 110/70
--- NOTE | 2024-07-22 11:10 | W.PN.HOSP.TC ---
Addendum entered and electronically signed by Junior Vasques MD 07/22/24 14:43:
Addendum
I spoke with pt again about the right adnexal mass through translation. Patient was seen by [facility] AUTHOR'S AGENT for it this year and was told it was ok , she was not clear about timing or follow up. She did not do a follow up. I told her to f/w out AUTHOR'S AGENT
doctor and to bring her [facility] records with her to the appointment. I talked with Dr Padilla and gave her pt's informations. Pt verbalized understanding. was also present at bed side. They both verbalized understanding. Answered all their
questions through [employer]rar [employer] or [employer]. Patient wanted her friend to translate and not phone translation.
d/w neurology, use Meclizine PRN
End
Original Note:
Today's Communication/Plan
-
dc after neurology evaluation
Assessment / Plan
Assessment / Plan
Physical Exam
General: Well Developed, Well Nourished and No Apparent Distress
HEENT: Normocephalic, Moist mucous membranes and Atraumatic
Respiratory: Clear
Cardiac: S1/S2 and Regular Rhythm; No Murmur or Rub
GI: Soft, Non Tender, Non Distended and Normal Bowel Sounds; No Organomegaly
Rectal: no rectal bleeding
Musculoskeletal: No Clubbing, No Cyanosis and No Edema
Skin: No Rash
Neuro: AO x 3 and Nonfocal/grossly intact
Psych: Calm
#Abrupt onset of dizziness and nausea with accompanied generalized weakness
-CT head No CT evidence for acute intracranial hemorrhage or transcortical infarct
- Normal brain MRI
-- she was seen by neurology, ok to start AC therapy. Appreciate neurology input.
#new onset Paroxysmal atrial fib with slow RVR
- No chest pain
- She denies palpitations
s/p IV heparin gtt, now on Eliquis. For OP echo and cardiology follow up.
#hypokalemia likely from N/V
-k 3.3
-iv KCL
#PUD
- hx of stomach ulcer
#Glaucoma
-brimonidine continued
#complex right adnexal mass
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
#DVT ppx: SCD
#Code: Full
Total discharge time spent to see the patient, examine the patient on the floor, review data and lab results, discuss the discharge plan with the patient, nursing staff around 65 minutes
Anticipated Discharge: Today
Subjective/Interval History
-
Date of Service: July 22, 2024
She feels better
Not dizzy
No chest pain or palpitations
Objective Data
-
Labs:
Laboratory Results
07/22/24
04:38
WBC 5.0
Hgb 11.1 L
Hct 31.5 L
Plt Count 177
APTT 89.1 H
Sodium 141
Potassium 4.1
Chloride 105
Carbon Dioxide 27
BUN 12
Creatinine 0.8
Glucose 81
Calcium 9.3
Vital Signs:
Vital Signs
Temp Pulse Resp BP Pulse Ox
97.6 F 58 18 109/68 100
07/22/24 07:00 07/22/24 07:00 07/22/24 07:00 07/22/24 07:00 07/22/24 07:00
I&O
07/21/24 07/22/24 07/23/24
06:59 06:59 06:59
Intake Total 720 / 720
Balance 720 / 720
[2024-07-22] MEDS: ELIQUIS 5 MG PO (11:36)
[2024-07-22] MEDS: LR IV (11:38)
--- NOTE | 2024-07-22 11:40 | CM ---
Addendum entered by Katarina Muller RN 07/22/24 15:01:
Patient discharged today to home with no needs. Patient's spouse to provide transportation. Provided to admissions patient's additional [facility] # [id number].
Original Note:
Reviewed the chart notes and spoke with the patient, spouse and son at the bedside. The patient resides with spouse and son in a two story home with 10 steps to enter. The patient reports no DME/VN/SNF in the past. The patient confirmed her
pharmacy of choice is the [facility]. CM continues to be available to patient/family and is monitoring medical plan for needs at discharge.
Plan: Discharge to home when medically stable. No anticipated needs.
--- NOTE | 2024-07-22 14:43 | W.DCSUMMARY ---
Discharge Summary
Discharge Data
Date of Admission: 07/21/24
Date of Discharge: 07/22/24
-
Pending Results: No
Hospital Course
54 years old female presented with sudden onset of feeling dizzy and developed nausea and vomiting. She did not have leukocytosis or fevers. No headache. 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 Head
scan showed no CT evidence for acute intracranial hemorrhage or transcortical infarct. Neurologist evaluated the patient. Brain MRI did not show stroke. Head and neck Angio with and without contrast was normal. Differential diagnosis included
possible vertigo, acute labyrinthitis. Her symptoms improved. Neurology recommended to use Meclizine as needed. She was found to paroxysmal atrial fibrillation and was rate controlled around 50-60. She was seen by vegetable washer, started on Eliquis
and recommended outpatient follow up to do echocardiogram and further management. She had hypokalemia at 3.3 and was treated. EKG showed sinus bradycardia at 54 bpm and incomplete right bundle branch block, no previous EKG for comparison. Second EKG
showed atrial fibrillation with ventricular rate of 58 bpm. Borderline low voltages.
Patient had accidental finding of the right adnexal mass in Abdominal MRI in January 2024. Patient was seen by [facility]el[facility] FLIGHT PURSER and was told it was ok , she was not clear about timing or follow up. She did not do a follow up. I told her to f/w out FLIGHT PURSER
doctor and to bring her [facility] records with her to the appointment. I talked with Dr. Padilla and gave her pt's informations. Pt verbalized understanding. was also present at bed side. They both verbalized understanding. Answered all their
questions through occupational work experience teacher. Patient remained hemodynamically stable and was discharged in a stable condition.
Discharge Plan
-
Patient Disposition: Home (Routine Discharge)
Discharge Diagnosis/Procedures: Abrupt onset of dizziness and nausea with accompanied generalized weakness
consistent with acute vestibular neuritis
- new onset Paroxysmal atrial fibrillation, started on new medicine ( blood thinner- called Eliquis), you will need to follow with vegetable washer.
- Complex right adnexal mass, for OP FLIGHT PURSER follow up, please take records of [facility]el[facility] doctor follow up with you.
Diet: Regular
Referrals:
Nathaniel Modi MD [Active] - in one month
Georgina De MD [Active] - in one to two weeks
UNKNOWN,NO INTERVIEW [Family Provider] -
Silvia Padilla MD [Active] - in one to two weeks (Call to make an appointment for right adnexal mass )
Prescriptions:
New
Eliquis 5 mg Tablet
5 mg PO BID Qty: 60 0RF
meclizine 25 mg tablet
25 mg PO TIDPRN PRN (Reason: dizziness) Qty: 10 0RF
Continued
brimonidine [Alphagan P] 0.1 % Drops
1 drp BOTH EYES BID
Discharge Orders:
Discharge Patient (As Directed); Ordered 07/22/24
Ordered By: Junior Vasques
Discharge Date and Time
Print Language: [place]
[2024-07-22 15:00] VITALS: BP 113/69
[2024-07-23 11:40] LABS: Glycohemoglobin (HgbA1c) 5.2 % (4.0-5.6)
== END 2024-07-22 15:21 | disposition home or self-care (01) | DRG 149 ==
LOC: 3 WEST ACU 13:05
PROVIDERS: Registered Nurse; ADMITTING PHYSICIAN Internal Medicine; ATTENDING PHYSICIAN Internal Medicine; CONSULT PHYSICIAN Psychiatry & Neurology Neurology; EMERGENCY PHYSICIAN Emergency Medicine; OTHER PHYSICIAN Internal Medicine Cardiovascular Disease
DX: H81.21 Vestibular neuronitis, right ear (principal); H83.01 Labyrinthitis, right ear; H40.9 Unspecified glaucoma; I48.0 Paroxysmal atrial fibrillation; E87.6 Hypokalemia; R19.03 Right lower quadrant abdominal swelling, mass and lump; Z87.11 Personal history of peptic ulcer disease
CPT/HCPCS: 70450; 70496; 70498; 70551; 80048; 80053; 80061; 82962; 83036; 83690; 83735; 84484; 85025; 85027; 85610; 85730; 92610; 93005; 96361; 96374; 96375; 97161; 97165; 99285; Q9967

== ENCOUNTER → 2024-08-08 14:05 | Outpatient (REF) | payer MEDICARE, OTHER, SELFPAY | LOC: HWRCS 14:05 | PROVIDERS: ATTENDING PHYSICIAN Physician Assistant; FAMILY PHYSICIAN Internal Medicine | DX: I48.0 Paroxysmal atrial fibrillation (principal) | CPT/HCPCS: 93306 ==

== ENCOUNTER → 2024-12-24 15:38 | Outpatient (REF) | payer MEDICARE, OTHER, SELFPAY | LOC: DHSLP 15:38 | PROVIDERS: ATTENDING PHYSICIAN Internal Medicine Cardiovascular Disease | DX: G47.30 Sleep apnea, unspecified (principal); R06.83 Snoring | CPT/HCPCS: 95810 ==